=== PATIENT | male | born 1995 | race Caucasian/White ===

== ENCOUNTER 2017-07-22 16:36 | Emergency (ER) | payer MEDICAID, OTHER ==
[~2017-07-22] VITALS: Ht 180.3 cm; Wt 100.0 kg
[~2017-07-22 16:36] MED LIST: METH54TA PO
[2017-07-22 17:18] VITALS: BP 133/77
[2017-07-22] MEDS ORDERED: KETOROLAC TROMETHAMINE 60 MG/2 ML VIAL IM ONE (17:30)
[2017-07-22] MEDS ORDERED: METHOCARBAMOL 500 MG TABLET PO ONE (17:30)
== END 2017-07-22 17:47 | disposition home or self-care (01) ==
LOC: EMS 16:37
DX: M54.5 Low back pain (principal); G89.29 Other chronic pain
CPT/HCPCS: 96372; 99283; J1885

== ENCOUNTER 2022-06-16 10:19 | Emergency (ER) | payer OTHER ==
[~2022-06-16] VITALS: Ht 177.8 cm; Wt 109.1 kg
[2022-06-16] MEDS ORDERED: NEOMYCIN/POLYMYXIN B/HYDROCORT 10 ML OTIC SUSPENSION AD ONE (12:45)
[2022-06-16 13:01] VITALS: BP 125/73
== END 2022-06-16 13:15 | disposition home or self-care (01) ==
LOC: EMS 10:34
DX: H60.91 Unspecified otitis externa, right ear (principal); F90.9 Attention-deficit hyperactivity disorder, unspecified type
CPT/HCPCS: 99284; Z7502; Z7610